=== PATIENT | male | born 1965 | race Caucasian/White ===

== ENCOUNTER 2016-12-10 16:31 | Emergency (ER) | payer OTHER ==
[~2016-12-10] VITALS: Ht 180.3 cm; Wt 96.6 kg
[~2016-12-10 16:31] MED LIST: DIVALPROEX SOD125 M1 PO; DIVALPROEX SOD500 M1 PO; HYDROCHLOROTHIA25 MG PO; NOHOMEMEDS; POTASSIUM-9999 MG PO; SUBOXONE 8 MG-1 EAC2 SL; SUBOXONE 8 MG-2 MG S; WELLBUTRIN XL150 MG PO; ZESTRIL,PRINIVI10 MG PO; ZESTRIL10 MG PO
[2016-12-10] MEDS ORDERED: MEDROL DOSEPAK4 MG PO (18:50)
[2016-12-10] MEDS ORDERED: FLEXERIL10 MG PO (18:50)
[2016-12-10 19:15] VITALS: BP 150/101
== END 2016-12-10 19:17 | disposition home or self-care (01) ==
LOC: EME 16:31 → EXP 16:31
DX: M25.462 Effusion, left knee (principal); M25.562 Pain in left knee; I10 Essential (primary) hypertension
CPT/HCPCS: 73564; 99281; 99283

== ENCOUNTER 2016-12-23 11:43 | Emergency (ER) | payer OTHER ==
[~2016-12-23] VITALS: Ht 180.3 cm; Wt 101.5 kg
[~2016-12-23 11:43] MED LIST changes: +FLEXERIL10 MG PO; +MEDROL DOSEPAK4 MG PO
[2016-12-23] MEDS ORDERED: IBUPROFEN800 MG PO (14:09)
[2016-12-23 15:02] LABS: HEMATOCRIT 40.8 % (38.0-50.0); MCH 29.5 PG (29.0-34.0); MCHC 34.3 G/DL (30.0-36.0); MCV 85.9 FL (86-99); MEAN PLAT.VOLUME 8.8 uM^3 (9.0-12.4); PLATELET COUNT 326 K/uL (156-360); RBC DIS.WIDTH-CV 11.8 % (11.8-14.6); RBC DIS.WIDTH-SD 37.1 % (39-53); RED BLOOD COUNT 4.75 M/uL (4.00-5.50); WHITE BLOOD COUNT 10.1 K/uL (4.1-10.2)
[2016-12-23 15:25] LABS: TROP-I INTERPRETATION NEGATIVE; TROPONIN-I < 0.01 ng/mL (0.0-0.30)
[2016-12-23 17:22] LABS: CHLORIDE 101 mEq/L (99-109); POTASSIUM 3.3 mEq/L (3.7-5.4); SODIUM 140 mEq/L (136-147)
[2016-12-23 17:24] LABS: GLUCOSE 90 mg/dL (70-99)
[2016-12-23 17:25] LABS: ANION GAP 13 MEQ/L (2-14)
[2016-12-23 17:26] LABS: TOTAL BILIRUBIN 0.2 mg/dL (0.0-1.0)
[2016-12-23 17:27] LABS: ALKALINE PHOSPHATASE 55 IU/L (3-129)
[2016-12-23 17:28] LABS: GFR ESTIMATE (CALCULATED) > 59 mL/min/
[2016-12-23 17:29] LABS: UREA NITROGEN (BUN) 12 mg/dL (9-23)
[2016-12-23] MEDS ORDERED: PREDNISONE10 M1 PO (19:04)
[2016-12-23 19:22] LABS: TROP-I INTERPRETATION NEGATIVE; TROPONIN-I < 0.01 ng/mL (0.0-0.30)
[2016-12-23 20:08] VITALS: BP 117/86
== END 2016-12-23 20:19 | disposition home or self-care (01) ==
LOC: EME 11:43
PROVIDERS: Physician Assistant
DX: M25.562 Pain in left knee (principal); R06.00 Dyspnea, unspecified; M79.89 Other specified soft tissue disorders; R53.83 Other fatigue; M71.22 Synovial cyst of popliteal space [Baker], left knee; I10 Essential (primary) hypertension
CPT/HCPCS: 71020; 71275; 80053; 84484; 85027; 93005; 93971; 99281; 99285